=== PATIENT | male | born 1960 | race African-American/Black ===

== ENCOUNTER 2016-09-21 17:22 | Emergency (ER) | payer MEDICARE ==
[2016-09-21 15:53] LABS: BASOPHILS 0.2 %; BASOPHILS ABSOLUTE 0.01 10/3/uL (0.0-0.16); EOSINOPHILS 0.6 %; EOSINOPHILS ABSOLUTE 0.04 10/3/uL (0.0-0.53); HEMATOCRIT 50.2 % (40.0-51.0); HEMOGLOBIN 17.1 g/dL (13.6-17.8); IMMATURE GRANULOCYTES 0.2 %; IMMATURE GRANULOCYTES ABSOLUTE 0.01 10/3/uL (0.0-0.11); LYMPHOCYTES 23.2 %; LYMPHOCYTES ABSOLUTE 1.48 10/3/uL (0.67-4.30); MEAN CORPUS HGB CONC 34.1 g/dL (32.0-36.0); MEAN CORPUSCULAR HEMOGLOB 31.5 pg (26.0-34.0); MEAN CORPUSCULAR VOLUME 92.4 fL (80-100); MEAN PLATELET VOLUME 9.4 fL (9.2-13.0); MONOCYTES 4.1 %; MONOCYTES ABSOLUTE 0.26 10/3/uL (0.21-1.20); NEUTROPHILS 71.7 %; NEUTROPHILS ABSOLUTE 4.59 10/3/uL (2.02-8.40); PLATELET COUNT 181 10/3/uL (150-400); RED CELL COUNT 5.43 10/6/uL (4.7-6.1); WHITE BLOOD CELLS 6.4 10/3/uL (4.5-10.5)
[2016-09-21 15:56] LABS: MANUAL DIFF NO %
[2016-09-21 16:32] LABS: ALLENS TEST Pos; BE (BASE EXCESS) 0.9 MEQ/L (0 +/- 2.5); CARBOXYHEMOGLOBIN 3.4 % (0-3); HCO3 (ACTUAL BICARBONATE) 25.4 MEQ/L (23-27); HEMOBLOGIN CONTENT 16.8 G/DL (14-18); INSTRUMENT SERIAL # 8087; METHEMOGLOBIN 0.3 % (0-3); O2 CONTENT 21.8 VOL% (18-24); OPERATOR ID 32214; PCO2 (CO2 TENSION) 40 MMHG (35-45); PO2 (O2 TENSION) 71 MMHG (79-93); SAMPLE Arterial; pH 7.42 (7.37-7.43)
[2016-09-21 17:09] LABS: ASCORBIC ACID (UR NOT ORDER) 20 (NEG); BILIRUBIN, URINE NEGATIVE (NEG); ER URINALYSIS TAT 0 Hrs 10 Mins; KETONE, URINE TRACE MG/DL (NEG); LEUKOCYTE ESTERASE(NOT OR NEG (NEG); NITRITE (URINE) NEG (NEG); WBC (NOT ORDERED) (RFLEX) 2 (0-5)
[~2016-09-21 17:22] MED LIST: *UNABLE1; *UNABLE2; APRES25 PO; ASABAYER PO; B150 PO; CARASPUDL PO; CENTRUM TAB1 TAB PO; CIP5 PO; FLAG500TAB PO; FOLIC PO; HALF81 PO; HCTZ25B PO; HYDROCHLOROT25 MG PO; LISINOPRIL40 MG PO; LOP25 PO; METOPROLOL PO; MULTIPLE VIT PO; MULTIVIT/MIN PO; NIACIN 500 PO; NORV5 PO; PEP20 PO; PR25 PO; PRIN20 PO; PROTONIX PO; REG PO; SUCR PO; VITAMIN B PO; VITAMIN B-1500 MG PO; XALAT OPH; Z100 PO; ZOCOR20 PO
[2016-09-21 17:32] LABS: A/G RATIO 0.9 (0.7-1.9); ALBUMIN 3.6 G/DL (3.5-5.0); ALKALINE PHOSPHATASE 74 U/L (45-117); CHLORIDE, SERUM 108 MMOL/L (96-112); CREATININE 1.52 MG/DL (0.70-1.30); GFR AFRICAN AMERICAN 59 ML/MIN (>=60); GFR NON AFRICAN AMERICAN 51 ML/MIN (>=60); GLOBULIN 3.8 G/DL (2.5-4.1); SGPT(ALT) 23 U/L (5-65); SODIUM, SERUM 141 MMOL/L (135-148); TOTAL BILIRUBIN 0.2 MG/DL (0-1.2); TOTAL PROTEIN 7.4 G/DL (6.0-8.5); TROPONIN I <0.02 NG/ML (<0.05)
[2016-09-21 17:33] LABS: BUN (BLOOD UREA NITROGEN) 18 MG/DL (6-23); CALCIUM, SERUM 8.2 MG/DL (8.5-10.4); CO2 (CARBON DIOXIDE) 20 MMOL/L (24-34); GLUCOSE, SERUM 62 MG/DL (60-99); POTASSIUM, SERUM 4.7 MMOL/L (3.5-5.3); SGOT(AST) 29 U/L (5-40)
[2016-09-21 18:08] LABS: AMPHETAMINES (NOT ORD) NEG (NEG); BARBITURATES (NOT ORDERED NEG (NEG); BENZODIAZEPINES (NOT ORD) NEG (NEG); CANNABINOIDS (THC) POS (NEG); COCAINE (NOT ORDERED) NEG (NEG); OPIATES NEG (NEG); PHENCYCLIDINE(PCP) NEG (NEG); TRICYCLICS NEG (NEG)
[2016-09-21 18:22] LABS: SALICYLATE 4.3 MG/DL (-)
[2016-09-21 18:24] LABS: ACETAMINOPHEN LEVEL (TYLENOL) < 2.0 MCG/ML (10.0-20.0); ALCOHOL < 10 MG/DL (0)
== END 2016-09-21 19:40 | disposition home or self-care (01) ==
LOC: ER 17:22
PROVIDERS: Emergency Medicine; Nurse Practitioner
DX: R11.2 Nausea with vomiting, unspecified (principal); F19.10 Other psychoactive substance abuse, uncomplicated; I10 Essential (primary) hypertension; F17.200 Nicotine dependence, unspecified, uncomplicated; Z87.442 Personal history of urinary calculi; Z86.73 Personal history of transient ischemic attack (TIA), and cerebral infarction without residual deficits; Z79.899 Other long term (current) drug therapy
CPT/HCPCS: 36600; 70450; 71010; 74176; 80053; 80305; 80307; 81001; 82805; 83690; 83880; 84484; 85025; 93005; 96374; 99285; J2405

== ENCOUNTER 2016-09-22 13:23 | Emergency (ER) | payer MEDICARE | END 2016-09-22 13:45 | disposition left against medical advice (07) | LOC: ER 13:23 | DX: R51 Headache (principal); F17.200 Nicotine dependence, unspecified, uncomplicated; Z79.899 Other long term (current) drug therapy | CPT/HCPCS: 99284; J1630 ==